=== PATIENT | female | born 1990 | race Caucasian/White ===

== ENCOUNTER 2023-11-24 01:18 | Emergency (ER) | payer OTHER ==
[2023-11-24 01:25] VITALS: BP 115/72; PULSE 80; RESP 17; TEMP 98.4; BMI 31.8
[2023-11-24 02:37] LABS: EPI CELLS >36 /uL (0-25.1); HYALINE CASTS 1 /uL (0-3.1); PH,URINE 6.5 (5.0-8.0); URINE APPEARANCE CLEAR; URINE BACTERIA 247 /uL (0-1359); URINE BILIRUBIN NEGATIVE (NEGATIVE); URINE COLOR YELLOW; URINE GLUCOSE (UA) NEGATIVE (NEGATIVE); URINE KETONE TRACE (NEGATIVE); URINE LEUK ESTERASE TRACE (NEGATIVE); URINE NITRITE NEGATIVE (NEGATIVE); URINE PROTEIN TRACE (NEGATIVE); URINE RBC 6 /uL (0-23.9); URINE WBC 19 /uL (0-25.8)
[2023-11-24 03:14] LABS: URINE CRYSTALS NONE SEEN /hpf
[2023-11-24] MEDS ORDERED: ACETAMINOPHEN 325 MG TABLET (FP) ONE (03:20)
[2023-11-24] MEDS: ACETAMINOPHEN 325 MG TABLET (FP) PO ONE (03:30)
[2023-11-24 04:14] LABS: BASO % 0.3 % (0-2.0); EOS % 2.3 % (0-4.5); HEMATOCRIT 30.5 % (32.4-45.2); HEMOGLOBIN 10.3 GM/dL (10.7-15.3); MCH 26.4 pg (25.7-33.7); MCHC 33.8 g/dl (32.0-36.0); MEAN CELL VOLUME 78.3 fl (80-96); MEAN PLT VOLUME 8.2 fl (7.5-11.1); MONO % 4.9 % (3.8-10.2); NEUT % 74.5 % (42.8-82.8); PLATELET COUNT 236 10^3/uL (134-434); RBC 3.89 M/mm3 (3.60-5.2); RDW 17.6 % (11.6-15.6); WHITE BLOOD COUNT 10.6 K/mm3 (4.0-10.0)
[2023-11-24 04:21] LABS: INR 1.03 (0.83-1.09); PROTHROMBIN TIME (PATIENT) 11.8 SEC (9.7-13.0)
[2023-11-24 04:23] LABS: ACTIVATED PTT 36.5 SECONDS (25.2-36.5)
[2023-11-24 04:42] LABS: CALCIUM 8.1 mg/dL (8.5-10.1)
[2023-11-24 04:43] LABS: ALBUMIN 2.9 g/dl (3.4-5.0); BLOOD UREA NITROGEN 11.6 mg/dL (7-18)
[2023-11-24] MEDS: BUPRENORPHINE HCL 75 MCG FILM BC ONE ×2 (04:44→08:37)
[2023-11-24 04:46] LABS: CREATININE 0.5 mg/dL (0.55-1.3)
[2023-11-24 04:47] LABS: TOT PROT 6.6 g/dl (6.4-8.2)
[2023-11-24 04:48] LABS: BILIRUBIN,TOTAL 0.1 mg/dL (0.2-1)
== END 2023-11-24 11:10 | disposition left against medical advice (07) ==
LOC: JER 01:18
DX: O26.892 Other specified pregnancy related conditions, second trimester (principal); R10.31 Right lower quadrant pain; R11.0 Nausea; O99.891 Other specified diseases and conditions complicating pregnancy; R09.81 Nasal congestion; R53.83 Other fatigue; R50.9 Fever, unspecified; O99.322 Drug use complicating pregnancy, second trimester; F11.20 Opioid dependence, uncomplicated; Z3A.18 18 weeks gestation of pregnancy; Z20.822 Contact with and (suspected) exposure to COVID-19
CPT/HCPCS: 0241U-QW; 36415; 76801-TC; 80053; 81003; 84702; 85025; 85610; 85730; 86850; 86900; 86901; 87086; 93005; 93010; 99285-25